=== PATIENT | male | born 1945 | race Caucasian/White ===

== ENCOUNTER 2018-10-10 10:13 | Day surgery (SDC) | payer OTHER ==
[2018-10-10] MEDS ORDERED: ALTEPLASE 2 MG VIAL IVP PRN (10:24)
[2018-10-10] MEDS ORDERED: FLUMAZENIL 0.5 MG/5 ML MDV IVP PRN (10:24)
[2018-10-10] MEDS ORDERED: fentaNYL 100 MCG/2 ML INJ IVP PRN (10:24)
[2018-10-10] MEDS ORDERED: MIDAZOLAM 2 MG/2 ML VIAL IVP PRN (10:24)
[2018-10-10] MEDS ORDERED: MEPERIDINE 25 MG/ML SYR IVP PRN (10:24)
[2018-10-10] MEDS ORDERED: HEPARIN 10,000 UNIT/10 ML MDV (1,000 UNIT/ML) IVP PRN (10:24)
[2018-10-10] MEDS ORDERED: PROTAMINE SULFATE 50 MG/5 ML VIAL IVP PRN (10:24)
[2018-10-10] MEDS ORDERED: NALOXONE HCL 0.4 MG/ML INJ IVP PRN (10:24)
[2018-10-10] MEDS ORDERED: GLUCAGON HCL 1 MG VIAL IVP PRN (10:24)
[2018-10-10] MEDS ORDERED: NS 1,000 ML IV SCH (10:30)
[2018-10-10] MEDS ORDERED: LIDOCAINE 1% 5 ML SDV ONE (11:36)
[2018-10-10] MEDS ORDERED: LIDOCAINE 1% 300 MG/30 ML SDV ONE (11:48)
[2018-10-10] MEDS ORDERED: FLUTICASONE NASAL 120 SPRAYS/16 GM MDI EACHNARE ONE (12:30)
[2018-10-10 12:50] LABS: INR 0.95 (0.83-1.16); PROTIME(PATIENT) 12.3 SEC (12.0-15.0)
[2018-10-10] MEDS ORDERED: fentaNYL 100 MCG/2 ML INJ ONE ×2 (13:30→14:55)
[2018-10-10] MEDS ORDERED: NALOXONE HCL 0.4 MG/ML INJ ONE (13:30)
[2018-10-10] MEDS ORDERED: ONDANSETRON 4 MG/2 ML VIAL IVP PRN (14:25)
--- NOTE | 2018-10-10 14:28 | PDRADPRE ---
Radiology History & Physical Indication for procedure: lung nodule/mass Home medications: Fluticasone Nasal [Flonase Nasal [place]] 1 sprays NASAL PRN PRN 08/13/15 [Last Taken 09/26/18] Simvastatin [Zocor] 10 mg PO DAILY18 08/13/15 [Last Taken 10/09/18 06:00] Zolpidem Tartrate [Ambien 10 mg] 10 mg PO PRN PRN 08/13/15 [Last Taken 09/10/18] Allergies/Adverse Reactions: No Known Allergies Allergy (Verified 10/10/18 11:13) Mental status: A&Ox3
--- NOTE | 2018-10-10 14:30 | PDRADPN ---
Radiology Procedure Note Date of Procedure: 10/10/18 Radiologist: Barbie Farah Anesthesia: Local (Specify) (lidocaine) Pre-op Diagnosis: RCC with lung nodules Post-op Diagnosis: same Procedure: CT guided lung biopsy Finding(s): adequate sample per pathology but patient developed a ptx...most of it was aspirated but will assess whether he will require a chest tube Inf/Abcess present in the surg proc area at time of surgery?: No
[2018-10-10 16:02] VITALS: BP 153/103
== END 2018-10-10 17:59 | disposition home or self-care (01) ==
LOC: FIMAGING 10:13 → F3E 13:40 → UNDOADMIN 13:40 → UNDODISIN 17:59 → FIMAGING 17:59
PROVIDERS: ATTEND Internal Medicine Hematology & Oncology
PROC: 0BBF3ZX Excision of Right Lower Lung Lobe, Percutaneous Approach, Diagnostic (ICD-10-PCS; principal; 2018-10-10 14:44)
DX: C78.01 Secondary malignant neoplasm of right lung (principal); J95.811 Postprocedural pneumothorax; Z85.528 Personal history of other malignant neoplasm of kidney; Z90.5 Acquired absence of kidney; Z87.891 Personal history of nicotine dependence
CPT/HCPCS: J2310; J3010

== ENCOUNTER → 2018-10-11 | Outpatient (CLI) | payer OTHER | LOC: FIMAGING 08:35 | PROVIDERS: ATTEND Radiology Diagnostic Radiology | DX: J93.9 Pneumothorax, unspecified (principal) ==